=== PATIENT | male | born 1995 | race African-American/Black ===

== ENCOUNTER 2017-01-06 17:25 | Emergency (ER) | payer SELFPAY ==
--- NOTE | 2017-01-06 17:49 | ER Document Report ---
ED Medical Screen (RME) - General Stated Complaint: RIGHT ARM PAIN Mode of Arrival: Ambulatory Information source: Patient Notes: Patient complains of tender lump to right axilla for the past 2-3 days. Patient additionally complains of dental pain to right side of jaw. No fever I have greeted and performed a rapid initial assessment of this patient. A comprehensive ED assessment and evaluation of the patient, analysis of test results and completion of the medical decision making process will be conducted by additional ED providers. Past Medical History Neurological Medical History: Reports: Hx Migraine - Immunizations Hx Diphtheria, Pertussis, Tetanus Vaccination: Yes Physical Exam - Vital signs Vitals: Temp Pulse Resp BP Pulse Ox 98.2 F 64 14 133/81 H 97 01/06/17 17:29 01/06/17 17:29 01/06/17 17:29 01/06/17 17:29 01/06/17 17:29 - Extremities General upper extremity: Tender - Right axillary tenderness Course - Vital Signs Vital signs: Temp Pulse Resp BP Pulse Ox 98.2 F 64 14 133/81 H 97 01/06/17 17:29 01/06/17 17:29 01/06/17 17:29 01/06/17 17:29 01/06/17 17:29
--- NOTE | 2017-01-06 19:49 | ER Document Report ---
ED ENT - General Chief Complaint: Abscess Stated Complaint: RIGHT ARM PAIN Time seen by provider: 19:44 Mode of Arrival: Ambulatory Information source: Patient Notes: 21-year-old male presents to ED for dental pain on dental pain tooth 32 has a swollen red area surrounding the tooth but no actual cavity in the tooth. Tooth 18 has a cavity with a chip of the tooth missing. He states these have been hurting for 2-3 days. He also has a tender tendon to his right axilla that has been hurting for several days after lifting his son. - HPI Patient complains to provider of: Dental problem, Other - Right axilla tendon tender Onset: Other Onset/Duration: Gradual Quality of pain: Other - Right axilla burning Severity: Moderate Pain Level: 3 - States the tenderness about 3 feet to this someone Location of pain: Tooth Associated symptoms: Other - Dental pain to tooth #32 and 18 right lower jaw has redness and swelling around the tooth left lower jaw has a cavity with a chip missing. Also has pain in his axilla area after lifting his son Similar symptoms previously: No Recently seen / treated by doctor: No - Related Data Allergies/Adverse Reactions: No Known Allergies Allergy (Verified 01/06/17 17:51) Past Medical History - General Information source: Patient - Social History Smoking Status: Never Smoker Cigarette use (# per day): No Chew tobacco use (# tins/day): No Smoking Education Provided: No Frequency of alcohol use: None Drug Abuse: Marijuana Occupation: none Lives with: Parents Family History: Arthritis, DM, Hypertension, Thyroid Disfunction. denies: CAD, COPD, CVA, Hyperlipidemia, Malignancy Patient has suicidal ideation: No Patient has homicidal ideation: No - Past Medical History Cardiac Medical History: Reports: None Pulmonary Medical History: Reports: None EENT Medical History: Reports: None Neurological Medical History: Reports: Hx Migraine Endocrine Medical History: Reports: None Renal/ Medical History: Reports: None Malignancy Medical History: Reports None GI Medical History: Reports: None Musculoskeltal Medical History: Reports None Skin Medical History: Reports None Psychiatric Medical History: Reports: None Traumatic Medical History: Reports: None Infectious Medical History: Reports: None Surgical Hx: Negative Past Surgical History: Reports: None - Immunizations Immunizations up to date: Yes Hx Diphtheria, Pertussis, Tetanus Vaccination: Yes Review of Systems - Review of Systems Constitutional: No symptoms reported EENT: No symptoms reported, Dental problem Cardiovascular: No symptoms reported Respiratory: No symptoms reported Gastrointestinal: No symptoms reported Genitourinary: No symptoms reported Male Genitourinary: No symptoms reported Musculoskeletal: Other - In the area to his right axilla area no lumps bumps or redness noted Skin: No symptoms reported Hematologic/Lymphatic: No symptoms reported Neurological/Psychological: No symptoms reported -: Yes All other systems reviewed and negative Physical Exam - Vital signs Vitals: Temp Pulse Resp BP Pulse Ox 98.2 F 64 14 133/81 H 97 01/06/17 17:29 01/06/17 17:29 01/06/17 17:29 01/06/17 17:29 01/06/17 17:29 Interpretation: Normal - General General appearance: Appears well, Alert - HEENT Head: Normocephalic, Atraumatic Eyes: Normal Pupils: PERRL Ears: Normal External canal: Normal Tympanic membrane: Normal Sinus: Normal Nasal: Normal Mouth/Lips: Caries Mucous membranes: Normal Teeth diagram: 1 - Becomes red little inflamed around the tooth no abscess noted no cavity noted. 2 - I cavity noted with the chip part of the tooth missing. Minimal discomfort no redness around the tooth noted. - Respiratory Respiratory status: No respiratory distress Chest status: Nontender Breath sounds: Normal Chest palpation: Normal - Cardiovascular Rhythm: Regular Heart sounds: Normal auscultation Murmur: No - Abdominal Inspection: Normal Distension: No distension Bowel sounds: Normal Tenderness: Nontender Organomegaly: No organomegaly - Back Back: Normal, Nontender - Extremities General upper extremity: Normal inspection, Nontender, Normal color, Normal ROM , Normal temperature General lower extremity: Normal inspection, Nontender, Normal color, Normal ROM , Normal temperature, Normal weight bearing. No: Radha's sign - Neurological Neuro grossly intact: Yes Cognition: Normal Orientation: AAOx4 Hill[place] Coma Scale Eye Opening: Spontaneous [place] Coma Scale Verbal: Oriented Дмитрий Coma Scale Motor: Obeys Commands Hillrose Coma Scale Total: 15 Speech: Normal Motor strength normal: LUE, RUE, LLE, RLE Sensory: Normal - Psychological Associated symptoms: Normal affect, Normal mood - Skin Skin Temperature: Warm Skin Moisture: Dry Skin Color: Normal Course - Vital Signs Vital signs: Temp Pulse Resp BP Pulse Ox 98.2 F 64 14 133/81 H 97 01/06/17 17:29 01/06/17 17:29 01/06/17 17:29 01/06/17 17:29 01/06/17 17:29 Discharge - Discharge Clinical Impression: Tenderness of right axilla, Pain due to dental caries Condition: Stable Disposition: HOME, SELF-CARE Instructions: Family Physicians / Practices Additional Instructions: TOOTHACHE: Your pain is due to dental decay. The tooth must be repaired in order for you to feel better. You will, therefore, be referred to a dentist. We do not have dentists on the staff at [facility]. Severe swelling or drainage around a tooth usually means a dental abscess. This also requires evaluation and treatment by the dentist, but antibiotics may be prescribed while awaiting dental treatment. You should be rechecked immediately if you develop major swelling of the face, increasing pain, a lump in the jaw or gums, headache, difficulty swallowing, or fever. He was seen here for right axilla tenderness. There is no abscess no enlarged lymph nodes it appears to be a tender stretched tendon or ligament and the area. Please rest the area and follow-up with your primary doctor or orthopedics if the pain continues. PENICILLIN V K: You have been given a prescription for Penicillin VK. Your physician has determined that this is the best antibiotic for your condition. Pen VK can be taken with meals, however more of the antibiotic gets into the bloodstream if it's taken on an empty stomach. Penicillin usually has no side effects. However, allergy to penicillins is common. If you have had an allergic reaction to any drug of the penicillin family, you should never take any other penicillin. Notify your doctor at once if you develop hives, itching, swelling, faintness, or shortness of breath. Warm Packs After approximately two days, apply gentle heat (such as a heating pad or hot water bottle) for about 20 to 30 minutes about every two hours -- at least four times daily. Warmth and elevation will help you make a more rapid recovery , and will ease the pain considerably. Do not use HOT heat, and never apply heat for longer than 30 minutes. The continuous heat can invisibly damage skin and muscles -- even when no burn is seen on the surface. Damaged muscles can make you MORE sore. Ibuprofen Ibuprofen is an excellent, safe drug for pain control. In addition, it has potent antiinflammatory effects which are beneficial, especially in the treatment of injuries, arthritis, or tendonitis. It's best to take ibuprofen with food. Persons with ulcer disease or allergy to aspirin should notify their physician of this before taking ibuprofen. Take the medication exactly as prescribed. Don't take additional doses unless instructed to do so by your doctor. If you develop wheezing, shortness of breath, hives, faintness, stomach pain, vomiting, or dark black stools, return for re-evaluation at once. FOLLOW-UP CARE: You have been referred for follow-up care to the dentists listed below. Call the dentists office for an appointment as you were instructed or within the next two days. If you experience worsening or a significant change in your symptoms, notify the physician immediately or return to the Emergency Department at any time for re-evaluation. [facility] [address] [place] [address] [facility] [place] [address] [facility] [address] [facility] [address] [email or web address] [address] [place] [address] Thursday- 8:00am to 5:00 pm Will see patients from other [facility]. Charges based on income and family size and accepts Medicare, Medicaid, and Insurances Will pull molars [facility] [address] Hours of Operation 8:00 am - 4:30 pm weekdays The following dental offices accept Medicaid: [facility] Dr. [address] Dr. Escobar Dr. Serna Dr. Willis Vaughn Aguilar [place], and [place] [facility] Dr. Villarreal ([place]) Dr. Quintana ([place]) [facility] Drs. An ([place]) Dr. Ledezma ([place]) [facility] [place] Dr. Patel ([place]) Drs. Diggs and ([place]) Medicaid Care Line Prescriptions: Ibuprofen 800 mg PO Q8HP PRN #20 tablet PRN Reason: Penicillin V Potassium [Penicillin Vk 500 mg Tablet] 500 mg PO BID #20 tablet Forms: Elevated Blood Pressure, Smoking Cessation Education Referrals: SHEILA ALCANTAR MD [ACTIVE STAFF] - Follow up as needed
[2017-01-06] MEDS ORDERED: PENICILLIN V POTASSIUM 500 MG TABLET PO ONE (19:51)
[2017-01-06] MEDS ORDERED: IBUPROFEN 800 MG TABLET PO ONE (19:51)
[2017-01-06 20:08] VITALS: BP 131/76
== END 2017-01-06 20:08 | disposition home or self-care (01) ==
LOC: ER 17:25
DX: K02.9 Dental caries, unspecified (principal); K08.89 Other specified disorders of teeth and supporting structures; M79.621 Pain in right upper arm; X50.0XXA Overexertion from strenuous movement or load, initial encounter
CPT/HCPCS: 99282